=== PATIENT | female | born 1980 | race Caucasian/White ===

== ENCOUNTER 2017-03-23 20:05 | Inpatient (IN) | payer OTHER ==
[~2017-03-23] VITALS: Ht 170.2 cm; Wt 73.9 kg
[~2017-03-23 20:05] MED LIST: FES300 PO; IBUP-1152 PO; PREN1TAB47 PO; VICODIN 5-3251 EACH PO
[2017-03-23] MEDS ORDERED: Lactated Ringer's 1,000 ML IV PRN (20:19)
[2017-03-23] MEDS ORDERED: Oxytocin 30 Units/500 mL LR 30 UNITS in IV Premix 1 EACH IV PRN (20:20)
[2017-03-23] MEDS ORDERED: Hemorrhage Kit, Post Partum XX ONE (20:20)
[2017-03-23] MEDS ORDERED: fentaNYL-PF 50 mCg/mL 2 mL Inj IVPUSH PRN (20:20)
[2017-03-23] MEDS ORDERED: Methylergonovine 0.2 mg/mL Inj IM PRN (20:20)
[2017-03-23] MEDS ORDERED: Carboprost 250 mCg/mL Inj IM PRN (20:20)
[2017-03-23] MEDS ORDERED: Oxytocin 10 Unit/mL Inj IM PRN (20:20)
[2017-03-23] MEDS ORDERED: Sodium Chloride LOK Flush 10 mL Syringe IVFLUSH PRN (20:20)
[2017-03-23 21:23] LABS: Mean Corpuscular Hemoglobin 29.5 pg (27.0-35.0); Mean Corpuscular Volume 87.1 fL (81-100)
[2017-03-23] MEDS ORDERED: Lactated Ringer's 500 ML IV ONE (23:01)
[2017-03-23] MEDS ORDERED: EPHEDrine Sulfate 50 mg/mL Inj IVPUSH PRN (23:05)
[2017-03-23] MEDS ORDERED: Ondansetron 2 mg/mL 2 mL Inj IVPUSH PRN (23:05)
[2017-03-23] MEDS ORDERED: fentaNYL 2 mCg/mL-Bupiv 0.125% 100 ML EPIDURAL SCH (23:05)
[2017-03-23] MEDS ORDERED: Atropine 1 mg/10 mL (Code) Syringe IVPUSH PRN (23:05)
[2017-03-24] MEDS ORDERED: Sodium Chloride LOK Flush 10 mL Syringe IVFLUSH SCH (00:30)
[2017-03-24] MEDS ORDERED: Oxytocin 30 Units/500 mL LR Premix IV SCH (01:25)
[2017-03-24] MEDS: Lactated Ringer's 1,000 ML IV SCH ×2 (04:31→15:01)
--- NOTE | 2017-03-24 07:29 | PCM.HPANE ---
Patient Data Surgeon Admitting Provider:Joseph Bonds MD Attending Provider:Joseph Bonds MD Primary Care Physician:Joseph Bonds MD Other Provider:Myriam Del Cid Anesthesia Reason for Visit Term Labor TERM LABOR Ht/WT & BMI Body Mass Index Allergies Coded Allergies: acetaminophen (Verified Allergy, Unknown, 03/14/13) oxycodone HCl (Verified Allergy, Unknown, PT TOLERATES VICODIN PER RN URIEL, 03/15/13) Allergies intolerance to percocet (itching) Past Anesthesia History Anesthesia History: Denies:: Abnormal Airway, Anesthesia Reactions, Difficult Intubation, Fam Anesthesia Reaction, Fam Malignant Hypertherm, Malignant Hyperthermia Diabetes History Hx Diabetes?: No MRSA MRSA: No Medications Hypertension Medication: No Home Meds Incl Beta Yogesh: No Active Scripts IBUPROFEN-Expunged Drug, Do Not Renew! 800 Mg Inexil067 Mg PO Q8 PRN #90 TAB TAKE WITH FOOD Prov:Joseph Bonds MD 03/16/13 Ferrous Sulfate-Expunged Drug, Do Not Renew! (Feosol-Expunged Drug, Do Not Renew !)325 Mg [id number] Mg PO DAILY #30 TAB Prov:Joseph Bonds MD 03/16/13 Hydrocod/APAP-Expunged, Do Not Renew! (VICODIN 5/325-Expunged Drug, Do Not Renew )1 Each Tablet1 Tab PO Q6HP #30 TAB Prov:Joseph Bonds MD 03/16/13 Reported Medications Vit/Fe Fumarate/Fa-Expunged Drug, Do (-Expunged Drug, Do Not Renew!)1 Tab Tablet1 Tab PO DAILY 03/14/13 History History of ENT Problems?: No HEENT History: Denies:: Abnormal Airway Cataracts Difficult Intubation Dysphagia Glaucoma Hearing Problem Sinus Problem TMJ Denture Type: None Teeth Condition: Within Normal Limits Hx of Heart Problems?: No Cardiovascular History: Denies:: AICD Abdominal Aortic Aneurism Atrial Fibrillation Cardiac Surgery Chest Pain Congestive Heart Failure Coronary Artery Disease Edema Heart Murmur Hypertension Irregular Heartbeat Pacemaker Peripheral Vascular Rheumatic Fever Thrombophlebitis Valvular Heart Disease Hx of Respiratory Problem?: No Respiratory History: Denies:: Asthma COPD Chest Surgery Cough Dyspnea Emphysema Hemoptysis Oxygen Administration Pneumonia Pulmonary Embolism Tuberculosis Use of C-PAP Machine Use of Inhalers / NEBS Hx Neurologic Problems?: No Neurological History: Denies:: Alzheimer's Disease CVA Dementia Dizziness Headaches Multiple Sclerosis Parkinson's Disease Peripheral Neuropathy Seizures TIA Hx of GI Problems?: No Hx of Problems?: Yes Genitourinary History: Positive for:: Kidney Stones Female Hx: Positive for:: Currently Hx Musculoskeletal Problems?: No Hx of Psycho/Social Problems?: No Hx Surgeries?: Yes Smoking Status: Never Smoker Stop/Bang MITUL Risk Assessment: Low Risk, <3 Yes Risk Assessment Category Category 1A: Patient has history of documented sleep apnea, and HAS NOT received any narcotic, sedative or anesthesia administration during this stay. Category 1B: Patient has history of documented sleep apnea, and HAS received any narcotic , sedative or anesthesia administration during this stay Category 2: Patient has SUSPECTED Obstructive Sleep Apnea, and HAS received any narcotic , sedative or anesthesia administration during this stay. Category 3: Patient has SUSPECTED Obstructive Sleep Apnea and HAS NOT received narcotic, sedative or anesthesia administration during this stay. Category 4: Outpatient in Procedural Areas with known sleep apnea or who screen positive for High Risk via the STOP/BANG questionnaire. Exam Exam General Appearance: Alert, Oriented X3, Cooperative, No Acute Distress HEENT/AIRWAY: MP 2 Lungs: Clear to Auscultation, Normal Air Movement Heart: Exam Unremarkable, Regular Rate/Rhythm, No Murmurs/Rubs/Gallops Meds/Labs/Diagnostics Labs Test 03/23/17 21:10 White Blood Count 9.1th/mm3 (3.8-10.1) Red Blood Count 4.48mil/mm3 (3.90-5.20) Hemoglobin 13.2g/dL (12.0-15.6) Hematocrit 39.0% (35.0-46.0) Mean Corpuscular Volume 87.1fL (81-100) Mean Corpuscular Hemoglobin 29.5pg (27.0-35.0) Mean Corpuscular Hemoglobin Concent 33.8% (32.0-37.0) Red Cell Distribution Width 13.2% (12.3-15.4) Platelet Count 190bil/L (150-400) Plan Impression Patient chart reviewed, patient interviewed and anesthestic plan with risks, benefits, and alternatives discussed, and informed consent obtained. NPO per Anesth. Guidelines: Yes ASA Physical Status: ASA1 Normal Healthy Anesthetic Plan: Epidural Bene/Risks/Altern/Consents: Yes HP Complete Prior to Induction: Yes Gorge Crews MD Mar 23, 2017 23:01
[2017-03-24] MEDS ORDERED: Lactated Ringer's 1,000 ML IV SCH (08:53)
[2017-03-24] MEDS ORDERED: Witch Hazel-Glycerin Pads TOPICAL PRN (08:55)
[2017-03-24] MEDS ORDERED: Hemorrhage Kit, Post Partum XX ONE (08:55)
[2017-03-24] MEDS ORDERED: Oxytocin 10 Unit/mL Inj IM PRN (08:55)
[2017-03-24] MEDS ORDERED: LANOlin HPA 7 Gm Ointment TOPICAL PRN (08:55)
[2017-03-24] MEDS ORDERED: Carboprost 250 mCg/mL Inj IM PRN (08:55)
[2017-03-24] MEDS ORDERED: Methylergonovine 0.2 mg/mL Inj IM PRN (08:55)
--- NOTE | 2017-03-24 11:51 | PCM.OBVAG ---
Vaginal Delivery Date of Service Mar 24, 2017 Pre Operative Diagnosis Pre Operative Diagnosis Term gestation, labor Post Operative Diagnosis Post Operative Diagnosis Term gestation, delivered Procedure Obstetical Procedure: Normal Spontaneous Vaginal Delivery (over an intact perineum) Wildlife Removal Specialist/Paste Up Worker Provider and Paste Up Worker: Joseph Bonds MD Indication for Procedure Induction: Active labor, Pitocin augmentation, SROM, Progressed normally through labor Findings Obstetrical Findings: [place] (Female), Cord (3 Vessel), Presentation (Vertex) , 1 minute (9), 5 minutes (9), Placenta (Intact/Normal), Perineal Laceration (none) Analgesia/Medications Obstetrical Anesthesia: Epidural Procedure Details Procedure Details Patient is a 36 year-old , presenting with spontaneous rupture of membranes at 39 1/7 weeks EGA. She initially established a regular contraction pattern, which failed to produce significant cervical changer fixer several hours of observation. She was subsequently augmented with oxytocin. Labor then progressed well and she delivered via uncomplicated . Blood Loss & Administration Estimated Blood Loss: 300 Post Procedure Plan Post delivery Condition: Mom stable, Baby stable to nursery Joseph Bonds MD Mar 24, 2017 11:51
--- NOTE | 2017-03-25 02:26 | PCM.ANEP1 ---
Post Anesthesia PACU Phase 1 Assessment Anesthetic Administered: Epidural Level of Alertness: Awake, talking MCKEE's with Equal Strength: Yes Pain: No Pain Scale Score: 2 Nausea or Vomiting: No CV Function & Hydration Stable: No Airway Device: na Oxygen Delivery: Room Air Lungs: Clear to Auscultation, Normal Air Movement Dermatome Level: Full Sensation PACU Phase 2 Assessment Complications: No Follow up Care: N/A Patient Instructions Provided: N/A Gorge Castro MD Mar 25, 2017 02:25
[2017-03-25 05:54] LABS: Mean Corpuscular Volume 87.8 fL (81-100)
--- NOTE | 2017-03-25 07:40 | PCM.PNOBPP ---
Subjective Date of Service Mar 25, 2017 Post : Spontaneous Vaginal Delivery Visit History day #1 Subjective Patient without complaints. Lochia: Normal Pain Management: PO pain meds, Good Pain Control, No or Minimal Pain Gastrointestinal: Good Appetite Postop Activity: Ambulating Independently Labs Laboratory Tests 03/25/17 05:38: White Blood Count 10.0, Red Blood Count 3.43, Hemoglobin 10.3, Hematocrit 30.1, Mean Corpuscular Volume 87.8, Mean Corpuscular Hemoglobin 30.0, Mean Corpuscular Hemoglobin Concent 34.2, Red Cell Distribution Width 13.0, Platelet Count 151 Exam Vital Signs Vital Signs Vital Signs Date Time Temp Pulse Resp B/P Pulse Ox O2 Delivery O2 Flow Rate FiO2 03/25/17 02:25 Room Air Vital Signs: VS reviewed, stable Exam Abdomen: Uterus is, Fundus firm, Abdomen soft, Abdomen non-tender Perineum: Intact : Voiding without difficulty Extremities: No cords, No tenderness/swelling Lungs: Clear to Auscultation, Normal Air Movement Heart: Normal S1, Normal S2, No Murmurs/Rubs/Gallops General: Alert, Oriented X3, Cooperative, No Acute Distress OB Post Assessment/Plan Assessment PPD#1 -- doing well Problems: (1) Spontaneous vaginal delivery Status: Acute ICD Code: O80 (2) normal course Status: Acute ICD Code: Z39.2 (3) with 39 completed weeks gestation Status: Acute ICD Code: Z3A.39 Pain Evaluation: Adequate Pain Control Post plan: Anticipate discharge home today Joseph Bonds MD Mar 25, 2017 07:40
--- NOTE | 2017-03-25 07:44 | PCM.DC.OB ---
Obstetrical Discharge Summary Date of Service Mar 25, 2017 Date of hospital admission Mar 23, 2017 at 20:10 Date of Discharge: Mar 25, 2017 Providers Admitting Physician: Joseph Bonds MD Primary Care Physician: Joseph Bonds MD Attending Physician: Joseph Bonds MD Problems: (1) Spontaneous vaginal delivery Status: Acute ICD Code: O80 (2) normal course Status: Acute ICD Code: Z39.2 (3) with 39 completed weeks gestation Status: Acute ICD Code: Z3A.39 Brief History and Physical: 36yo admitted at 39 1/7 weeks EGA with SROM of clear fluid. Hospital Course: Labor progressed slowly, initially. Augmentation with oxytocin was initiated, with subsequent good labor progress. Patient received an epidural for analgesia , with good effect. She delivered a vigorous female via . Minimal EBL. Perineum was intact. course was uneventful. Ferrous Sulfate-Expunged Drug, Do Not Renew! (Feosol-Expunged Drug, Do Not Renew !) 325 Mg Tablet 325 MG PO DAILY Prescribed by: JOSEPH BONDS MD Hydrocod/APAP-Expunged, Do Not Renew! (VICODIN 5/325-Expunged Drug, Do Not Renew ) 1 Each Tablet 1 TAB PO Q6HP Prescribed by: JOSEPH BONDS MD IBUPROFEN-Expunged Drug, Do Not Renew! (IBUPROFEN-Expunged Drug, Do Not Renew!) 800 Mg Tablet 800 MG PO Q8 PRN PRN TAKE WITH FOOD Prescribed by: JOSEPH BONDS MD Vit/Fe Fumarate/Fa-Expunged Drug, Do (-Expunged Drug, Do Not Renew!) 1 Tab Tablet 1 TAB PO DAILY (Reported) Disposition Home Follow-up plan 6 weeks Discharge Diet: No restrictions Discharge Activity-General: Pelvic Rest for 6 weeks Joseph Bonds MD Mar 25, 2017 07:44
--- NOTE | 2017-03-25 07:46 | PCM.DIOB ---
Obstetrical Disch Instruction Date of Service: Mar 25, 2017 Dates of Hospitalization Date of Hospital Admission Mar 23, 2017 at 20:10 Providers Admitting Physician: Joseph Bonds MD Primary Care Physician: Joseph Bonds MD Attending Physician: Joseph Bonds MD Discharge Diagnosis Problems: (1) Spontaneous vaginal delivery Status: Resolved ICD Code: O80 (2) normal course Status: Resolved ICD Code: Z39.2 (3) with 39 completed weeks gestation Status: Resolved ICD Code: Z3A.39 Diet Discharge Diet: No restrictions Activity Discharge Activity-General: Pelvic Rest for 6 weeks Dressing and Incisional Care Hygiene: May shower Follow Up Plan Follow-up Provider (F9): Joseph Bonds MD Follow-up appointment: Weeks (6) Joseph Bonds MD Mar 25, 2017 07:46
[2017-03-25 08:11] VITALS: BP 108/59; PULSE 81; RESP 16
== END 2017-03-25 08:47 | disposition home or self-care (01) | DRG 775 ==
LOC: FBCO 20:05 → FBC 20:10
PROVIDERS: ADMIT Family Medicine; ATTEND Family Medicine
PROC: 10E0XZZ Delivery of Products of Conception, External Approach (ICD-10-PCS; principal; 2017-03-24)
DX: O69.81X0 Labor and delivery complicated by cord around neck, without compression, not applicable or unspecified (principal); Z37.0 Single live birth; Z3A.39 39 weeks gestation of pregnancy